=== PATIENT | female | born 1975 | race Caucasian/White ===

== ENCOUNTER 2017-01-05 23:46 | Emergency (ER) | payer MEDICAID ==
[~2017-01-05] VITALS: Wt 70.5 kg
[2017-01-06] MEDS ORDERED: HYDROCODONE/APAP (5/325) TAB PO ONE (01:00)
[2017-01-06] MEDS ORDERED: IBUP-1542 PO ×2 (01:08→01:32)
--- NOTE | 2017-01-06 01:09 | ERD ---
ER Documentation Chief Complaint Date/Time DATE: 01/06/17 TIME: 01:07 Chief Complaint Left wrist pain. fell while exercising HPI 41-year-old female presents to emergency department for complaints of left wrist pain after tripping and falling while doing some exercise today. Patient landed on the left wrist. Patient discussed the pain as throbbing pain, 6/10 scale, and movement, and respond. Patient denies any numbness or tingling. Patient denies any deformity. Patient did took ibuprofen for pain with only mild relief. ROS All systems reviewed and are negative except as per history of present illness. Medications Home Meds Reported Medications Ibuprofen* (Motrin*) Unknown Strength Tab, PO Q6H Y for PAIN AND OR ELEVATED TEMP, #30 TAB 01/06/17 Allergies Allergies: Coded Allergies: No Known Allergy (Unverified , 09/08/12) PMhx/Soc History of Surgery: Yes (CSECTION X 3) Anesthesia Reaction: No Hx Neurological Disorder: No Hx Respiratory Disorders: No Hx Cardiac Disorders: No Hx Psychiatric Problems: No Hx Alcohol Use: No Hx Substance Use: No Hx Tobacco Use: No Smoking Status: Never smoker FmHx Family History: No coronary disease, No diabetes, No other Physical Exam Vitals Vital Signs Date Time Temp Pulse Resp B/P Pulse Ox O2 Delivery O2 Flow Rate FiO2 01/06/17 00:16 97.5 69 20 108/66 98 Physical Exam GENERAL: The patient is well developed and appropriate for usual state of health, in no apparent distress. CHEST: Clear to auscultation bilaterally. There are no rales, wheezes or rhonchi. HEART: Regular rate and rhythm. No murmurs, clicks, rubs or gallops. No S3 or S4. ABDOMEN: Soft, nontender and nondistended. Good bowel sounds. No rebound or guarding. No gross peritonitis. No gross organomegaly or masses. No Osullivan sign or McBurney point tenderness. BACK: No midline or flank tenderness. EXTREMITIES: Noted tenderness on palpation on the lateral medial aspect of the left wrist. No swelling noted. Equal pulses bilaterally. Full range of motion of other joints of the body. Grossly neurovascularly intact. NEURO: Alert and oriented. Cranial nerves 2-12 intact. Motor strength in all 4 extremities with 5/5 strength. Sensation grossly intact. Normal speech and gait. SKIN: There is no apparent rash or petechia. The skin is warm and dry. HEMATOLOGIC AND LYMPHATIC: There is no evidence of excessive bruising or lymphedema. No gross cervical, axillary, or inguinal lymphadenopathy. Results 24 hrs Current Medications Medications (Trade) Dose Ordered Sig/[place] Route PRN Reason Start Time Stop Time Status Last Admin Dose Admin Acetaminophen/ Hydrocodone Bitart ([place] (5/325)) 1 tab ONCE ONCE PO 01/06/17 01:00 01/06/17 01:01 DC 01/06/17 01:20 Patient was given medication for pain here in emergency department, after treatment, patient verbalized feeling much better. Patient's pain is improved. ROCEDURE: Left wrist x-ray. CLINICAL INDICATION: Left wrist pain TECHNIQUE: 3 views left wrist COMPARISON: None FINDINGS: Suspected nondisplaced intra-articular fractures of the distal left radial metaphysis. Otherwise, there is no acute fracture or dislocation. Soft tissues unremarkable. IMPRESSION: Suspected nondisplaced intra-articular fractures at the distal left radial metaphysis. RPTAT: [facility] Physician Susan Date Time Electronically viewed and signed by Physician Susan on 01/06/2017 01:17 RS/ CC: BABS MCHUGH NP After receiving patients xray report, a sugar tong splint was applied on the patients left wrist. After application of the splint, patient has intact sensation and circulation on distal area of the affected joint. Patient does not complain of numbness or tingling after application of the splint. Patient tolerated procedure well. A sling was given to use afterwards. Procedures/MDM Medical Decision Making: Patient's pain is most likely consistent with a the fracture noted in the xray. There is no suspicion for neurovascular compromise. Patient has intact sensation and circulation of the affected extremity. There is low suspicion for septic arthritis. Patient does not have any fever. Radiology exams of the affected area does not show any dislocation. Disposition: Home. Patient is given prescription for ibuprofen for pain, [place] for severe pain. Patient was advised to elevate the affected area and apply ice on affected area. Patient was advised that if symptoms are worse, numbness, tingling, high fever, unable to move joint, worsening symptoms, to return to emergency department immediately. Otherwise, patient is advised to follow up with the primary care doctor in 5-7 days for reevaluation of symptoms. See orthopedic doctor for possible treatment and evaluation. Departure Diagnosis: Primary Impression: Wrist fracture Encounter type: initial encounter Fracture type: closed Laterality: left Qualified Code: S62.102A - Wrist fracture, left, closed, initial encounter Condition: Stable Patient Instructions: Fracture, Wrist [General] Additional Instructions: Patient is given prescription for ibuprofen for pain, [place] for severe pain. Patient was advised to elevate the affected area and apply ice on affected area. Patient was advised that if symptoms are worse, numbness, tingling, high fever, unable to move joint, worsening symptoms, to return to emergency department immediately. Otherwise, patient is advised to follow up with the primary care doctor in 5-7 days for reevaluation of symptoms. See orthopedic doctor for possible treatment and evaluation. BABS MCHUGH NP Jan 06, 2017 01:09
--- NOTE | 2017-01-06 01:18 | RADRPT ---
PROCEDURE: Left wrist x-ray. CLINICAL INDICATION: Left wrist pain TECHNIQUE: 3 views left wrist COMPARISON: None FINDINGS: Suspected nondisplaced intra-articular fractures of the distal left radial metaphysis. Otherwise, t here is no acute fracture or dislocation. Soft tissues unremarkable. IMPRESSION: Suspected nondisplaced intra-articular fractures at the distal left radial metaphysis. RPTAT: [facility] Lexy Noel Physician Date Time Electronically viewed and signed by Lexy Noel Physician on 01/06/2017 01:17 RS/
[2017-01-06] MEDS ORDERED: HYDR-906 PO (01:32)
== END 2017-01-06 02:09 | disposition home or self-care (01) ==
LOC: FTE 23:46
DX: S62.102A Fracture of unspecified carpal bone, left wrist, initial encounter for closed fracture (principal); W01.0XXA Fall on same level from slipping, tripping and stumbling without subsequent striking against object, initial encounter; Y92.9 Unspecified place or not applicable
CPT/HCPCS: 29125; 73110; Z7502; Z7610